=== PATIENT | female | born 1985 | race Two or more races ===

== ENCOUNTER 2021-10-31 13:30 | Inpatient (IN) | payer OTHER ==
[~2021-10-31] VITALS: Ht 157.5 cm; Wt 78.5 kg
[2021-11-21] MEDS ORDERED: PRENATAL CAPLE1 EAC1 (06:58)
[2021-11-21] MEDS ORDERED: IRON18 MG (06:59)
== END 2021-11-23 13:43 | disposition home or self-care (01) | DRG 807 ==
LOC: LDR 11-21 06:18 → OB/GYN 11-21 06:18 → LDR 11-22 13:30 → OB/GYN 11-23 13:43
PROVIDERS: ADMIT Obstetrics & Gynecology; ATTEND Obstetrics & Gynecology
PROC: 10E0XZZ Delivery of Products of Conception, External Approach (ICD-10-PCS; principal; 2021-11-21)
PROC: 0KQM0ZZ Repair Perineum Muscle, Open Approach (ICD-10-PCS; 2021-11-21)
PROC: 4A1HXCZ Monitoring of Products of Conception, Cardiac Rate, External Approach (ICD-10-PCS; 2021-11-21)
DX: O70.1 Second degree perineal laceration during delivery (principal); Z37.0 Single live birth; O66.0 Obstructed labor due to shoulder dystocia; O75.89 Other specified complications of labor and delivery; G54.0 Brachial plexus disorders; O99.820 Streptococcus B carrier state complicating pregnancy; Z20.822 Contact with and (suspected) exposure to COVID-19; Z3A.39 39 weeks gestation of pregnancy